=== PATIENT | male | born 1945 | race Caucasian/White ===

== ENCOUNTER → 2017-06-12 | Outpatient (CLI) | payer MEDICARE, BC ==
--- NOTE | 2017-06-12 11:13 | RADIOLOGY REPORT (SQ) ---
EXAM DESCRIPTION: CT ABDOMEN WITH IV ORAL CONT COMPLETED DATE/TIME: 06/12/2017 9:47 am REASON FOR STUDY: EPIGASTRIC PAIN (R10.13) R10.13 EPIGASTRIC PAIN COMPARISON: None. TECHNIQUE: CT scan of the abdomen performed with intravenous and with oral contrast using helical sc anning technique with dynamic intravenous contrast injection. Images reviewed with lung, soft tissue, and bone windows. Reconstructed coronal and sagittal MPR images reviewed. Delayed images for evaluat ion of the urinary system also acquired and evaluated. All images stored on PACS. All CT scanners at this facility use dose modulation, iterative reconstruc tion, and/or weight based dosing when appropriate to reduce radiation dose to as low as reasonably ac hievable (ALARA). [facility]: Dose Right [facility]: CareDose [facility]: Dose Right [facility]: Teradose 4D [facility]: [employer] CONTRAST TYPE AND DOSE: contrast/concentration: Isovue 370.00 mg/ml; Total Contrast Delivered: 96.0 ml; Total Saline Delivered: 71.0 ml RENAL FUNCTION: Creatinine 1.5 RADIATION DOSE: CT Rad equipment meets quality standard of care and radiation dose reduction techniq ues were employed. CTDIvol: 12.8 - 14.8 mGy. DLP: 995 mGy-cm. . LIMITATIONS: None. FINDINGS: LOWER CHEST: No significant findings. No nodules or infiltrates. LIVER: Normal size. No masses. No dilated ducts. There is a tiny relative low density area in the r ight lobe of the liver which is too small to further characterize by CT. SPLEEN: Normal size. No focal lesions. PANCREAS: No masses. No significant calcifications. No adjacent inflammation or peripancreatic fluid collections. Pancreatic duct not dilated. GALLBLADDER: No identified stones by CT criteria. No inflammatory changes to suggest cholecystitis. ADRENAL GLANDS: No significant masses or asymmetry. 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 There is a small associated renal cyst. No significant calcifications. No hydronephrosis or hydroureter. LEFT KIDNEY AND URETER: There is a slightly lobulated relative low density left renal mass measuring 2.2 x 2.2 cm in greatest diameters. CT numbers are higher than would be anticipated for a simple cys t. This could represent a complicated cyst or solid mass. Ultrasound or MRI may be of value for fur ther evaluation. No significant calcifications. No hydronephrosis or hydroureter. AORTA AND VESSELS: There is a small fusiform abdominal aortic aneurysm measuring 3.1 x 3.0 cm in diam eter. No dissection. Renal arteries, SMA, celiac without stenosis. RETROPERITONEUM: No retroperitoneal adenopathy, hemorrhage or masses. BOWEL AND PERITONEAL CAVITY: No masses or inflammatory changes. No free fluid or peritoneal masses. APPENDIX: Appendix is incompletely visualized. Visualized portions appear normal. ABDOMINAL WALL: No masses. No hernias. BONES: No significant or acute findings. OTHER: No other significant finding. IMPRESSION: Small abdominal aortic aneurysm. Tiny relative low density area in the right lobe of th e liver which is too small to further characterize by CT. Relative low density left renal mass as no lexus above. Ultrasound or MRI may be of value for further evaluation. Other findings as noted above TECHNICAL DOCUMENTATION: JOB ID: [id number] Quality ID # [id number]: Final reports with documentation of one or more dose reduction techniques (e.g., Au tomated exposure control, adjustment of the mA and/or kV according to patient size, use of iterative reconstruction technique) 2010 [employer]- All Rights Reserved
== END ==
LOC: RAD 08:46
PROVIDERS: ATTEND Internal Medicine Gastroenterology
DX: R10.13 Epigastric pain (principal)
CPT/HCPCS: 74160; 82565

== ENCOUNTER → 2018-02-04 | Outpatient (CLI) | payer MEDICARE, BC ==
--- NOTE | 2018-02-04 13:47 | RADIOLOGY REPORT (SQ) ---
EXAM DESCRIPTION: CT ABDOMEN COMBO COMPLETED DATE/TIME: 02/04/2018 10:23 am REASON FOR STUDY: RENAL MASS (N28.89) N28.89 OTHER SPECIFIED DISORDERS OF KIDNEY AND URETER COMPARISON: 06/12/2017 TECHNIQUE: CT scan of the abdomen performed with and without intravenous contrast, and without oral contrast. Contrasted imaging performed using helical scanning technique with dynamic intravenous cont rast injection. Images reviewed with lung, soft tissue, and bone windows. Reconstructed coronal and s agittal MPR images reviewed. Delayed images for evaluation of the urinary system also acquired and ev aluated. All images stored on PACS. All CT scanners at this facility use dose modulation, iterative reconstruction, and/or weight based d osing when appropriate to reduce radiation dose to as low as reasonably achievable (ALARA). [facility]: Dose Right [facility]: CareDose [facility]: Dose Right [facility]: Teradose 4D [facility]: [employer] CONTRAST TYPE AND DOSE: contrast/concentration: Isovue 350.00 mg/ml; Total Contrast Delivered: 56.0 ml; Total Saline Delivered: 80.0 ml RENAL FUNCTION: Creatinine 0.9 RADIATION DOSE: CT Rad equipment meets quality standard of care and radiation dose reduction techniq ues were employed. CTDIvol: 15.6 - 19.7 mGy. DLP: 2905 mGy-cm.. LIMITATIONS: None. FINDINGS: NONCONTRASTED IMAGING: No significant renal or bladder calcifications. No other significan t organ calcifications. POSTCONTRASTED IMAGING: LOWER CHEST: No significant findings. No nodules or infiltrates. LIVER: Normal size. No masses. No dilated ducts. SPLEEN: Normal size. No focal lesions. PANCREAS: No masses. No significant calcifications. No adjacent inflammation or peripancreatic fluid collections. Pancreatic duct not dilated. GALLBLADDER: No identified stones by CT criteria. No inflammatory changes to suggest cholecystitis. ADRENAL GLANDS: Stable 11 mm left adrenal nodule on image 54. RIGHT KIDNEY AND URETER: No solid masses. No significant calcifications. No hydronephrosis or hyd roureter. LEFT KIDNEY AND URETER: There is a slightly irregular low-density solid lesion in the dorsal aspect o f the left kidney. This measures about 2 cm in largest diameter. The appearance is concerning. The re has been a slight increase in size compared to the study of 06/12/2017. No significant calcificat ions. No hydronephrosis or hydroureter. AORTA AND VESSELS: There is mild aneurysm dilatation of the infrarenal abdominal aorta that shows a m aximum diameter of 30 mm. RETROPERITONEUM: No retroperitoneal adenopathy, hemorrhage or masses. BOWEL AND PERITONEAL CAVITY: Descending and sigmoid diverticulosis with no acute inflammation. APPENDIX: Normal. PELVIS: Urinary bladder is unremarkable. No pelvic masses. A small portion of the inferior pelvis was not included. ABDOMINAL WALL: Small umbilical hernia containing only fat. Small left inguinal hernia. BONES: No significant or acute findings. OTHER: No other significant finding. IMPRESSION: 1. Small irregular low-density solid lesion in the dorsal aspect of the left kidney. T his is slightly concerning in appearance. Consider ultrasound see whether this is cystic. If not, c onsider biopsy or excision. 2. Diverticulosis coli. 3. Borderline aneurysmal dilatation of the infrarenal abdominal aorta with a maximum diameter of 3 c m. 4. Small umbilical hernia containing only fat. Small left inguinal hernia containing only fat and v essels. 5. Stable 11 mm left adrenal nodule. TECHNICAL DOCUMENTATION: JOB ID: [id number] Quality ID # [id number]: Final reports with documentation of one or more dose reduction techniques (e.g., Au tomated exposure control, adjustment of the mA and/or kV according to patient size, use of iterative reconstruction technique) 2010 [employer]- All Rights Reserved Reading location - IP/workstation name: [email or web address]
== END ==
LOC: RAD 09:23
PROVIDERS: ATTEND Urology
DX: N28.89 Other specified disorders of kidney and ureter (principal); K57.30 Diverticulosis of large intestine without perforation or abscess without bleeding; K42.9 Umbilical hernia without obstruction or gangrene; E27.9 Disorder of adrenal gland, unspecified
CPT/HCPCS: 74170; 82565

== ENCOUNTER 2019-05-17 11:30 | Emergency (ER) | payer MEDICARE, BC ==
--- NOTE | 2019-05-17 11:52 | ER Document Report ---
HPI - HPI Time Seen by Provider: 05/17/19 11:45 Notes: Patient is a 74-year-old male with a history of hypertension coronary disease who presents complaining of right ankle pain and swelling as well as mild right proximal lateral lower leg pain status post twist injury that occurred about 6 hours ago. Patient states that he rolled his ankle causing the pain and swelling. He has pain with weightbearing, but has been limping. He has noticed some bruising as well to this area. Denies drug allergies. He did not injure any other part of his body. Denies any headache, fever, head injury, neck pain, changes in vision/speech/mentation/hearing, URI, sore throat, chest pain, palpitations, syncope, cough, shortness of breath, wheeze, dyspnea, abdominal pain, nausea/vomiting/diarrhea, urinary retention, dysuria, hematuria, loss of control of bowel or bladder, numbness/tingling, saddle anesthesia, muscle paralysis, or rash. He is on a baby aspirin daily. - ROS Systems Reviewed and Negative: Yes All other systems reviewed and negative Past Medical History - Social History Smoking Status: Unknown if Ever Smoked Family History: Reviewed & Not Pertinent Vertical Provider Document - CONSTITUTIONAL Agree With Documented VS: Yes Notes: PHYSICAL EXAMINATION: GENERAL: Well-appearing, well-nourished and in no acute distress. LUNGS: Breath sounds clear to auscultation bilaterally and equal. No wheezes rales or rhonchi. HEART: Regular rate and rhythm without murmurs, rubs, gallops. Musculoskeletal: Lt/Rt foot/ankle: + ankle swelling b/l with scant ecchymosis laterally. LROM to passive/active dorsiflexion. Strength 4+/5 due to pain. N/V intact distal. + tenderness to the bilateral malleoli. No bony tenderness of the foot. Achilles intact. Lis Franc maneuver neg. Anterior drawer neg. Rt knee: No obvious swelling, ecchymosis, effusion, or deformity. FROM to passive/active and flexion >90 w/o difficulty or tenderness. Strength 5+/5. N/V intact distal. No bony tenderness at the knee aside from mild tenderness near the fibular head. Ligamentous grossly stable, limited exam with larger leg size. Kell grossly negative. Patellar grind negative. No calf tenderness. Extremities: No cyanosis, clubbing, or edema b/l. Peripheral pulses 2+. Capillary refill less than 3 seconds. NEUROLOGICAL: Normal speech, limping gait. Normal sensory, motor exams PSYCH: Normal mood, normal affect. SKIN: Warm, Dry, normal turgor, no rashes or lesions noted. - INFECTION CONTROL TRAVEL OUTSIDE OF THE [place] IN LAST 30 DAYS: No Course - Re-evaluation Re-evalutation: 05/17/19 Patient is an afebrile, well-hydrated, 74yo male who presents to the ED with a fracture to the Rt distal fibula/malleolus. Vitals are acceptable without any significant tachycardia, tachypnea, or hypoxia. PE is otherwise unremarkable for any neurovascular compromise, obvious tendon/ligament rupture, open fracture, septic joint. See XR result. Splint applied today and crutches provided. 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 Patient is nontoxic-appearing. No other labs or imaging warranted at this time based on H&P. Conservative measures otherwise for symptoms. Recheck with your PCM in 3-5 days. Call orthopedics tomorrow to schedule an appointment for further evaluation and management. Return to the ED with any worsening/concerning symptoms otherwise as reviewed in discharge. Patient is in agreement. - Vital Signs Vital signs: Temp Pulse Resp BP Pulse Ox 98.1 F 81 16 158/82 H 94 05/17/19 11:38 05/17/19 11:38 05/17/19 11:38 05/17/19 11:38 05/17/19 11:38 Procedures - Immobilization Right Ankle Pre-Proc Neuro Vasc Exam: Normal Immobilizer type: Sugar tong, Short Leg Posterior Performed by: PCT Post-Proc Neuro Vasc Exam: Normal, Unchanged from pre-exam Discharge - Discharge Clinical Impression: Fracture of distal end of right fibula Qualifiers: Encounter type: initial encounter Fracture type: closed Fracture morphology: other fracture Qualified Code(s): S82.831A - Other fracture of upper and lower end of right fibula, initial encounter for closed fracture Condition: Stable Disposition: HOME, SELF-CARE Additional Instructions: Rest, Ice, Compression, Elevation Use crutches/splint as directed Tylenol/ibuprofen as needed F/u with your PCP in 3-5 days for a recheck Call orthopedics tomorrow to schedule an appointment for further evaluation and management Return to the ED with any worsening symptoms and/or development of fever, headache, chest pain, palpitations, syncope, shortness of breath, trouble breathing, abdominal pain, n/v/d, muscle weakness/paralysis, numbness/tingling, swelling, redness, or other worsening symptoms that are concerning to you. Forms: Elevated Blood Pressure Referrals: BRYN CONTE MD [NO LOCAL MD] - Follow up as needed [facility] [Provider Group] - Follow up as needed JAMI PAINTING JR, DO [ACTIVE PROVISIONAL STAFF] - Follow up in 3-5 days
--- NOTE | 2019-05-17 13:17 | RADIOLOGY REPORT (SQ) ---
EXAM DESCRIPTION: ANKLE RIGHT COMPLETE; TIBIA FIBULA RIGHT COMPLETED DATE/TIME: 05/17/2019 12:36 pm REASON FOR STUDY: Rt ankle pain/swelling s/p injury; prox fibular pain s/p injury COMPARISON: None. NUMBER OF VIEWS: Two views. TECHNIQUE: AP, lateral, and oblique radiographic images acquired of the right ankle. AP and lateral views of the right tibia and fibula. LIMITATIONS: None. FINDINGS: MINERALIZATION: Normal. BONES: There is an oblique, displaced fracture of the distal fibula. There is a mildly displaced fra cture at the posterior malleolus. No other acute fracture or dislocation is noted at the remainder o f the tibia and fibula. There is calcaneal enthesopathy. SOFT TISSUES: There is soft tissue swelling at the ankle, more over the lateral malleolus. There is a small joint effusion at the ankle. IMPRESSION: Displaced fracture of the distal fibula. Mildly displaced fracture at the posterior mal leolus. Soft tissue swelling and joint effusion at the right ankle. TECHNICAL DOCUMENTATION: JOB ID: [id number] [place]-64 2010 [employer]- All Rights Reserved Reading location - IP/workstation name: [email or web address]
--- NOTE | 2019-05-17 13:17 | RADIOLOGY REPORT (SQ) ---
EXAM DESCRIPTION: ANKLE RIGHT COMPLETE; TIBIA FIBULA RIGHT COMPLETED DATE/TIME: 05/17/2019 12:36 pm REASON FOR STUDY: Rt ankle pain/swelling s/p injury; prox fibular pain s/p injury COMPARISON: None. NUMBER OF VIEWS: Two views. TECHNIQUE: AP, lateral, and oblique radiographic images acquired of the right ankle. AP and lateral views of the right tibia and fibula. LIMITATIONS: None. FINDINGS: MINERALIZATION: Normal. BONES: There is an oblique, displaced fracture of the distal fibula. There is a mildly displaced fra cture at the posterior malleolus. No other acute fracture or dislocation is noted at the remainder o f the tibia and fibula. There is calcaneal enthesopathy. SOFT TISSUES: There is soft tissue swelling at the ankle, more over the lateral malleolus. There is a small joint effusion at the ankle. IMPRESSION: Displaced fracture of the distal fibula. Mildly displaced fracture at the posterior mal leolus. Soft tissue swelling and joint effusion at the right ankle. TECHNICAL DOCUMENTATION: JOB ID: [id number] [place]-64 2010 [employer]- All Rights Reserved Reading location - IP/workstation name: [email or web address]
[2019-05-17 14:17] VITALS: BP 148/71
== END 2019-05-17 14:17 | disposition home or self-care (01) ==
LOC: ER 11:30
DX: S82.831A Other fracture of upper and lower end of right fibula, initial encounter for closed fracture (principal); X50.0XXA Overexertion from strenuous movement or load, initial encounter; I10 Essential (primary) hypertension
CPT/HCPCS: 99283